=== PATIENT | female | born 1970 | race Caucasian/White ===

== ENCOUNTER → 2019-06-10 | Outpatient (CLI) | payer BC ==
[~2019-06-10] MED LIST: ATIVAN0.5 MG PO; BENTYL10 MG PO; FLEXERIL5 MG PO; MOTRIN800 MG PO; PEPCID20 MG PO; PREDNISONE50 MG PO; REGLAN10 MG PO
== END | disposition home or self-care (01) ==
LOC: RAD 13:14
DX: M50.30 Other cervical disc degeneration, unspecified cervical region (principal); M43.8X2 Other specified deforming dorsopathies, cervical region; M48.02 Spinal stenosis, cervical region; G44.209 Tension-type headache, unspecified, not intractable; M40.50 Lordosis, unspecified, site unspecified